=== PATIENT | female | born 1945 | race Caucasian/White ===

== ENCOUNTER 2018-08-09 08:09 | Inpatient (IN) ==
[2018-08-03 13:22] LABS: Appearance,Urine CLEAR; Bilirubin,Urine NEG (NEG); Color,Urine STRAW; Glucose,Urine (UA) NEGATIVE (NEG); Leukocyte Esterase,Urine NEG /uL (NEG); Protein,Urine NEG (NEG); Specific Gravity,Urine 1.006 (1.000-1.035); Urine Blood NEG mg/dL (<0.03); Urobilinogen,Urine NEG (NEG)
[2018-08-03 14:29] LABS: Basophils # (Auto) 0 K/mcL (0.0-0.3); Basophils % (Auto) 0.6 % (0.0-2.0); Eosinophils # (Auto) 0.1 K/mcL (0.0-0.7); Eosinophils % (Auto) 2.5 % (0.0-7.0); Granulocytes % (Auto) 50.8 % (38.0-78.0); Lymphocytes # (Auto) 1.9 K/mcL (1.5-4.8); Lymphocytes % (Auto) 39.6 % (15.5-49.0); Mean Cell Volume 95.9 fL (80.0-100.0); Mean Corpuscular HGB Conc 33.2 g/dL (31.0-36.0); Monocytes # (Auto) 0.3 K/mcL (0.1-0.9); Monocytes % (Auto) 6.5 % (1.0-12.0); Platelet Count 173 K/mcL (140-440); RBC 4.24 M/mcL (4.00-5.20); Red Cell Distribution Width 13.1 % (11.5-14.5)
[2018-08-03 14:41] LABS: Blood Urea Nitrogen 16 mg/dl (8-23)
[2018-08-03 14:53] LABS: Estimated Average Glucose(eAG) 111 mg/dL; Hemoglobin A1C 5.5 % HGB (4.0-6.0)
[~2018-08-09 08:09] MED LIST: CELECOXIB 200 MG CAPSULE PO SCH; PREGABALIN 75 MG CAPSULE PO SCH; ceFAZolin 1 GM VIAL IV SCH; oxyCODONE 10 MG TAB.ER.12H PO SCH
[2018-08-09] MEDS ORDERED: HEPARIN 5,000 UNIT/ML VIAL SQ ONE ×2 (10:59→11:01)
[2018-08-09] MEDS ORDERED: MIDAZOLAM 5 MG/5 ML VIAL IV ONE (11:30)
[2018-08-09] MEDS ORDERED: PROPOFOL 200 MG/20 ML VIAL IV ONE (11:30)
[2018-08-09] MEDS ORDERED: DEXAMETHASONE 4 MG/ML VIAL IV ONE (11:30)
[2018-08-09] MEDS ORDERED: TRANEXAMIC ACID 1,000 MG/10 ML VIAL IV ONE ×2 (11:30→13:08)
[2018-08-09] MEDS ORDERED: LIDOCAINE HCL/PF 100 MG/5 ML SYRINGE IV ONE (11:30)
[2018-08-09] MEDS ORDERED: ePHEDrine 50 MG/ML AMPUL IV ONE (11:30)
[2018-08-09] MEDS ORDERED: PHENYLEPHRINE 10 MG/ML VIAL IV ONE (11:30)
[2018-08-09] MEDS ORDERED: POLYETHYLENE GLYCOL 3350 17 GM PACKET PO PRN (13:08)
[2018-08-09] MEDS ORDERED: BISACODYL 10 MG SUPP.RECT PR PRN (13:08)
[2018-08-09] MEDS ORDERED: BENZOCAINE/MENTHOL 1 LOZENGE PO PRN (13:08)
[2018-08-09] MEDS ORDERED: MAGNESIUM HYDROXIDE 30 ML ORAL.SUSP PO PRN (13:08)
[2018-08-09] MEDS ORDERED: ONDANSETRON 4 MG/2 ML VIAL IV PRN (13:08)
[2018-08-09] MEDS ORDERED: FLEETS ADULT ENEMA PR PRN (13:08)
--- NOTE | 2018-08-09 13:08 | Brief Operative Note ---
Date of procedure: 08/09/18 Pre-op diagnosis: R hip DJD Post-op diagnosis: same Procedure: Right anterior total hip arthroplasty Grafts/Implants: Yes (Depuy Actis 5 std stem, +1.5 36 delta head, 52 cup, neutral altrx liner) Anesthesia: spinal, GLMA Findings: large osteophytes Complications: none Surgeon: Rojelio Isbell Migration Specialist: Luis Corey Estimated blood loss (cc): 250 Specimens Removed/Pathology: none sent Condition: stable Disposition: PACU
--- NOTE | 2018-08-09 14:10 | XRay Report ---
CLINICAL INFORMATION: Post-op Total Hip COMPARISON: None. FINDINGS: Right total hip prosthesis is anatomically aligned. No osseous abnormalities. Soft tissue swelling over the cervical site seen as expected. IMPRESSION: Negative Interpreted and Authenticated by: Chase Trevino 08/09/18
[2018-08-09] MEDS: 0.9 % SODIUM CHLORIDE 1,000 ML IV SCH ×2 (14:24→23:23)
[2018-08-09] MEDS: 0.9 % SODIUM CHLORIDE 10 ML SYRINGE IV SCH ×2 (14:25→23:22)
--- NOTE | 2018-08-09 14:57 | Operative Note ---
DATE OF OPERATION: 08/09/2018 PREOPERATIVE DIAGNOSIS: Right hip severe osteoarthritis. POSTOPERATIVE DIAGNOSIS: Right hip severe osteoarthritis. PROCEDURE PERFORMED: Right anterior total hip arthroplasty placing a DePuy Actis size 5 standard offset femoral stem, a +1.5, 36 mm delta ceramic head ball, a 52 Fallon cup with a neutral AltrX liner. SURGEON: Rojelio Isbell MD [employer] MECH[employer]IC: Conner Corey PA-C ANESTHESIA: Spinal plus general. DRAINS: None. SPECIMENS: Femoral head which was discarded. BLOOD LOSS: 250 mL COMPLICATIONS: None. POSTOPERATIVE CONDITION: Stable. INDICATIONS FOR SURGERY: This is a 72-year-old female with progressive worsening right hip pain. Radiographs showed advanced arthritis. FINDINGS AT SURGERY: She had large osteophytes with an impingement. Post implantation showed satisfactory component position. She did have some limb lengthening due to the femoral stem hanging up proud of the neck cut. PROCEDURE IN DETAIL: The patient had been seen preoperatively. Informed consent had been obtained after discussion of risks and benefits of surgery. Risks including, but not limited to, bleeding, possibly requiring transfusion; infection, possibly requiring implant removal and prolonged IV antibiotics; injury to nerves, blood vessels, and other surrounding structures; anesthetic risks; leg length discrepancies, dislocation; fracture; DVT and pulmonary embolus risks; and the possibility of needing further revision joint surgery. She understood these risks and wished to proceed. Correct operative site was marked and then patient was taken to the operating room after spinal anesthesia was given. LMA general was performed and she was carefully positioned on the Lat[place] table and the right hip and groin were then carefully prepped and draped in normal sterile fashion. A timeout was performed verifying patient name, operative site, and plan. Ioban was used to cover all skin surfaces and then a standard anterior approach incision was made with a scalpel through skin and subcutaneous tissue. Hemostasis was obtained with Bovie cautery and then careful blunt dissection was taken down on the tensor fascia. We then undermined circumferentially and IrriSept was irrigated and a ring retractor placed. We then went ahead and incised the tensor fascia in line with the muscle fibers. We then carefully dissected medial to the muscle belly and then placed blunt cobra retractors on the superior and inferior femoral neck. We coagulated and cut the circumflex vessels and split the vastus fascia distally. An anterior capsulectomy was performed and capsule was released out to the greater and lesser trochanters. We then placed a corkscrew in the femoral head and osteotome was used under fluoro to identify our neck cut. We went ahead and make our neck cut with the saw and then the femoral head was removed. Acetabulum was exposed. Labrum was removed, what remained, and soft tissue from the floor. We then started reaming initially directly medializing and increasing reamer size and angle until a size 52 got rim ream. We went ahead and trialed a 52, which to get some press fit we went ahead and opened a 52 cup. When removing the trial we did note a large osteophyte came out from inferior. The acetabulum was irrigated with IrriSept, after a minute pulse lavaged with saline. We impacted the cup. We did get pressfit, but it was not super robust, so I went ahead and drilled and placed a screw 35 mm in the posterior superior quadrant. Once this was completed, I placed a center hole cover and then a neutral AltrX liner was carefully aligned and impacted. We then externally rotated the leg with traction off and released capsule around the medial neck and posterior. The leg was then extended and adducted and we used a Bovie to release capsule out to the greater trochanter. Once we had adequate exposure, we used a box osteotome to gain canal entry. An awl was used to identify canal trajectory. We then used a rongeur and rasp to lateralize and then started broaching. We initially stopped at a 3 and then a +1.5 head ball was placed and the hip was reduced without excessive tension. AP pelvis was taken to verify neutral rotation and then AP of the nonoperative and operative hips were overlaid. Our leg lengths were very close. However, the stem was quite undersized and in some varus, so I went ahead and redislocated. We removed the 3 trial and rongeured and rasped some more. We broached up to a size 5 femoral stem. This seated just at our neck cut. We went ahead and removed the trial. The definitive implant was opened. The femoral canal was irrigated with IrriSept, after a minute we pulse lavaged with saline. The stem was then impacted. Unfortunately, this hung up about 5 mm or so proud of our neck cut. I did not want to place a 36 cobalt chrome head for metalosis concerns, so we went ahead and went with the +1.5 head ball. The stem was carefully cleaned and dried and then the head ball briskly impacted. The hip reduced with increased tension, although not severe. X-ray overlays revealed about a cm leg lengthening. These images were saved and we then irrigated the joint with IrriSept, after a minute pulse lavaged with saline. We then closed the tensor fascia with two running #1 Vicryl stitches. Ring retractor was removed and IrriSept irrigated again and after a minute pulse positive with saline; and then fat was tacked to fascia with Vicryl, 2-0 Monocryl for subcutaneous and kelly for skin. Xeroform sterile dressings were applied. The patient was awakened, extubated, and transferred to recovery in stable condition. BJB:[email or web address] Job ID: [id number] Doc ID: [id number] Rojelio Isbell MD
--- NOTE | 2018-08-09 18:29 | XRay Report ---
CLINICAL INFORMATION: right hip arthroplasty COMPARISON: None. FINDINGS: Multiple digital images in OR submitted. Final film shows right total hip prosthesis in anatomic position. No osseous abnormalities. IMPRESSION: . Negative Interpreted and Authenticated by: Chase Trevino 08/09/18
[2018-08-09] MEDS: ceFAZolin 1 GM VIAL IV SCH (20:54)
[2018-08-09] MEDS ORDERED: SENNOSIDES 1 TABLET PO SCH (21:00)
[2018-08-09] MEDS: ASPIRIN 325 MG ENTERIC COATED TABLET PO SCH (21:57)
[2018-08-09] MEDS: KETOROLAC 15 MG/ML VIAL IV PRN (21:57)
[2018-08-09] MEDS: DOCUSATE SODIUM 100 MG CAPSULE PO SCH (21:57)
[2018-08-10] MEDS: oxyCODONE/APAP 5/325MG TABLET PO PRN ×3 (01:40→12:24)
[2018-08-10] MEDS: KETOROLAC 15 MG/ML VIAL IV PRN ×2 (03:50→12:23)
[2018-08-10] MEDS: ceFAZolin 1 GM VIAL IV SCH (03:51)
[2018-08-10] MEDS: 0.9 % SODIUM CHLORIDE 10 ML SYRINGE IV SCH (06:16)
[2018-08-10] MEDS ORDERED: LEVOTHYROXINE 100 MCG TABLET PO SCH (07:30)
--- NOTE | 2018-08-10 08:07 | Discharge Summary ---
Ortho Discharge - [facility] - Patient Instructions Diet: Regular Diet Activity: weight bearing as tolerated Total Hip Protocol: Follow activity instructions as provided by Physical Therapy. Dressing Care: May shower in 2 days Patient Education: Total Hip Replacement (DC) Additional Instructions: Discharge Instructions: Do the exercises at home that physical therapy gave you throughout the day. Weight bearing as tolerated. Wear comfortable clothing for physical therapy. You are scheduled to start physical therapy at [facility] ([phone]) on July Take your prescription, photo ID, insurance cards, and current medication list with you to your first physical therapy appointment. Take your prescription to [employer] any medication. If you have the Aquacel Ag dressing, leave in place for 7 days then remove. If dressing becomes soiled (turns black), remove and use gauze 4x4 dressing and silvasorb ointment and change daily. Keep incision clean and dry. If you have Dermabond (a dressing with a mesh-like appearance), DO NOT remove mesh. Cover site daily with gauze dressing. You may start showering on post op day #2. The Dermabond dressing can get wet, do not scrub dressing. Pat dry, then place new dressing (above). To avoid constipation while taking any narcotic pain medication, take an over the counter stool softener/laxative. Use ice packs as directed, on for 20 minutes at a time throughout the day. This and elevation will help with pain and swelling. Call your physician for fevers above 100.5 or pain not controlled by medication. Your prescriptions are with your discharge information. Some medications were electronically transmitted to your pharmacy of choice. Take Aspirin twice daily, for 30 days, as prescribed to prevent blood clots (see medication list). - Follow Up Plan Follow Up Appointments: Luis Corey PA-C [[facility]ant] - 08/24/18 10:50 am Disposition: Home, Self-Care Prognosis: Good Rehab Potential: Good - Orders For Discharge Additional Discharge Orders: Physical Therapy at Discharge - [facility] Location: None Selected Toilet Riser Discharge Order Location: None Selected Walker Location: None Selected
[2018-08-10] MEDS ORDERED: FISH OIL 1,000 MG CAPSULE PO SCH (09:00)
[2018-08-10] MEDS ORDERED: MONTELUKAST 10 MG TABLET PO SCH (09:00)
[2018-08-10] MEDS ORDERED: MULTIVIT,THER IRON,CA,FA & MIN 1 TABLET PO SCH (09:00)
[2018-08-10] MEDS ORDERED: CALCIUM W/VIT D3 500 MG TABLET PO SCH (09:00)
[2018-08-10] MEDS: ASPIRIN 325 MG ENTERIC COATED TABLET PO SCH (09:27)
[2018-08-10] MEDS: DOCUSATE SODIUM 100 MG CAPSULE PO SCH (09:27)
[2018-08-10] MEDS: 0.9 % SODIUM CHLORIDE 1,000 ML IV SCH (14:33)
--- NOTE | 2018-08-10 22:30 | Orthopedic Progress Note ---
Subjective Patient information: Note initiated : 08/10/18 at 10:28 pm Service Date, if different from initiated Date: [08/10/18814] Patient: Lashell Sibley 72 y/o F admitted on 08/09/18 for Right Total Hip Arthroplasty. Chief Complaint: [] Principal diagnosis: s/p total hip Interval history: pain minimal Objective Vital signs: Vital Signs Temp Pulse Resp BP Pulse Ox 08/10/18 12:00 97.9 F 75 12 100/63 100 08/10/18 07:59 97.7 F 78 12 96/59 100 08/10/18 03:59 98.2 F 84 12 110/58 97 08/09/18 23:19 98.2 F 91 H 12 93/54 97 Intake and Output 08/10/18 08/10/18 08/11/18 13:59 21:59 05:59 Intake Total 920 Output Total 200 Balance 720 Intake: IV 800 Sodium Chloride 0.9% 1,000 ml @ 800 100 mls/hr IV .Q10H JENNIFER Rx#: [id number] Oral 120 Output: Void Amount 200 Other: Urine Appearance Clear Urine Color Bright Yellow # Voids 1 Intake & Output: Intake & Output 08/10/18 08/10/18 08/11/18 13:59 21:59 05:59 Intake Total 920 Output Total 200 Balance 720 Intake: IV 800 Sodium Chloride 0.9% 1,000 ml @ 800 100 mls/hr IV .Q10H JENNIFER Rx#: [id number] Oral 120 Output: Void Amount 200 Other: Urine Appearance Clear Urine Color Bright Yellow # Voids 1 Weight bearing status: as tolerated Neurological exam IM: Yes alert, Yes oriented X3, Yes neurovascular intact - Labs CBC & BMP: 08/10/18 05:23 08/03/18 11:46 Labs: 08/10/18 08/03/18 05:23 11:46 Hgb 9.0 L 13.5 Hct 27.3 L 40.7 Assessment and Plan (1) S/P total hip arthroplasty POD#1 doing well, no c/o other than leg longer -d/c home Status: Acute
== END 2018-08-10 13:20 | disposition home or self-care (01) | DRG 470 ==
LOC: MEDSUR 08:09
PROVIDERS: ADMIT Orthopaedic Surgery; ATTEND Orthopaedic Surgery